=== PATIENT | female | born 1975 | race African-American/Black ===

== ENCOUNTER 2022-07-20 17:49 | Emergency (ER) | payer SELFPAY ==
--- OUTSIDE RECORDS SUMMARY | 2022-07-20 17:52 | XMS REPORT | Continuity of Care Document ---
:[address] [facility] t Address [address] [place] [address] Care Team Providers Name Role Phone PCP, PATIENT DOES NOT HAVE A Primary Care Physician Unavailvlad Dailey MD, Snow Vargas Attending Clinician SRIKANTH GASPAR Attending Clinician Unavailable Afshin Lora MD Attending Clinician Srikanth Gaspar DO Attending Clinician CE DOVER Attending Clinician Unavailable FLORIDA JACINTO Attending Clinician Unavailable LATANYA ESPINO Attending Clinician Unavailable Grace Cook Attending Clinician Unavailable NA THAPA Attending Clinician Unavailable REGINA YADAV Attending Clinician Unavailable CE ELIZABETH Attending Clinician Unavailable UNDEFINED Attending Clinician Unavailable SRIKANTH GASPAR Admitting Clinician Unavailable Srikanth Gaspar DO Admitting Clinician CE DOVER Admitting Clinician Unavailable FLORIDA JACINTO Admitting Clinician Unavailable UNDEFINED Admitting Clinician Unavailable Payers Payer Name Policy Type Policy Number Effective Date Expiration Date S ource Problems Condition Condition Condition Status Onset Resolution Last Treating Co mments Source Name Details Category Date Date Treatment Clinician Date Vomiting, Vomiting, Disease Active 2021-05 Uni vers unspecifie unspecifie 06-11 [place] of d [place] d [place] type, type, 00 Medical unspecifie unspecifie Br anch d whether d whether nausea nausea present present Personal Personal Problem Active Centr al history of history of Ca re other other [facility] complicati complicati ty ons of ons of Health , , Ce nter childbirth childbirth and the and the puerperium puerperium Fibroids Fibroids Problem Active Centr al [facility] Severe Severe Problem Active Central depression depression Ca re [facility] Infertilit Infertilit Problem Active C entral y y Care counseling counseling Co [facility] BMI BMI Problem Active Central 37.0-37.9, 37.0-37.9, Ca re adult adult [facility] Urinary Urinary Problem Active Central frequency frequency [facility] Menorrhagi Menorrhagi Problem Active C entral a a [facility] Urinary Urinary Problem Active Central problem problem [facility] Unprotecte Unprotecte Problem Active C entral d sexual d sexual Care intercours intercours [facility] e e [facility] Nausea Nausea Problem Active Central [facility] BMI BMI Problem Active Central 39.0-39.9, 39.0-39.9, Ca re adult adult [facility] Sinusitis Sinusitis Problem Active Roberto tral [facility] Headache Headache Problem Active Centr al [facility] HTN HTN Problem Active Central (hypertens (hypertens Ca re ion) ion) [facility] Diabetes Diabetes Problem Active Centr al [facility] Well adult Well adult Problem Active C entral exam exam [facility] Hyperlipem Hyperlipem Problem Active C entral ia ia [facility] Allergies, Adverse Reactions, Alerts Allergy Allergy Status Severity Reaction(s) Onset Inactive Treating Comm ents Source Name Type Date Date Clinician Metformi Propensi Active Nausea 2021-05 Univer s n ty to and/or 06-10 ity of adverse Vomiting 00:00: [place] reaction 00 Medical s Branch METFORMI DRUG Active N/V 2021-05 Univers N INGREDI 06-10 ity of 00:00: [place] 00 Medical Branch metformi DA Active SV [facility] [place] 00:[facility]: d 00 [facility] metformi DA Active SV [facility] n 7-06 [place] 00:00: d 00 [facility] Metformi Adverse Active Info Not Centr al n HCl Reaction Available Care [facility] Metformi Adverse Active Info Not Centr al n & Diet Reaction Available Car e Manage [facility] NO KNOWN Drug Active Univers ALLERGIE Class ity of S [facility] Social History Social Habit Start Date Stop Date Quantity Comments Source Exposure to 2022-03-31 2022-04-10 Not sure [facility] SARS-CoV-2 00:00:00 06:34:00 [facility] (event) [place] Tobacco use and 2022-04-10 2022-04-10 Smokeless tobacco Un iversity of exposure 00:00:00 00:00:00 non-user [facility] Sex [birth year] Universit y of 00:00:00 00:00:00 [facility] Smoking Status Start Date Stop Date Source Never smoked tobacco [facility] Medications Ordered Filled Start Stop Current Ordering Indication Dosage Frequency Signature Comments Components Source Medication Medication Date Date Medication? Clinician (SIG) Name Name amoxicillin 2021-05- No [id number] 875mg Take 1 Univers 875 mg 06-15 tablet by ity of tablet 00:00: 05:59 mouth in [place] 00 :00 the Medical morning Branch and 1 tablet in the evening. Do all this for 3 days. metoclopram 2021-05 Yes 10mg 10 mg, Univ ers cristobal HCl 2-04 Slow IV ity of (REGLAN) 22:30: Push, [place] injection 00 TIDAC, Medical 10 mg First dose Branch (after last modificati on) on 04/11/22 at 1630, Until Discontinu ed, Routine metoclopram 2021-05- No 5mg 5 mg, Slow Univers cristobal HCl 2-04 12-04 IV Push, ity of (REGLAN) 20:10: 20:32 ONCE, 1 [place] injection 5 00 :00 dose, On Medi ford mg Sun Branch 04/11/22 at 1415, Routine metoclopram 2021-05 Yes 25mg Take 25 mg Univers cristobal HCl 2-04 by mouth ity of (REGLAN) 10 19:42: [place] mg tablet 42 morning. Medica l Branch insulin NPH 2021-05 Yes 20U inject 20 U nivers hum/reg 2-04 Units ity of insulin hm 19:42: [place] the [place] (HUMULIN 42 skin 2 Medical 70/30 PEN (two) Branch SC) times daily. GLIMEPIRIDE 2021-05 Yes 7.5mg Take 7.5 U nivers ORAL 2-04 mg by ity of 19:42: mouth [place] 42 daily. Medical Branch losartan 25 2021-05 Yes 25mg Take 25 mg Univers mg tablet 2-04 by mouth ity of 19:42: in the [place] 42 morning. Medical Branch metoclopram 2021-05 Yes 25mg Take 25 mg Univers cristobal HCl 2-04 by mouth ity of (REGLAN) 10 19:42: [place] mg tablet 42 morning. Medica l Branch insulin NPH 2021-05 Yes 20U inject 20 U nivers hum/reg 2-04 Units ity of insulin hm 19:42: under the [place] (HUMULIN 42 skin 2 Medical 70/30 PEN (two) Branch SC) times daily. GLIMEPIRIDE 2021-05 Yes 7.5mg Take 7.5 U nivers ORAL 2-04 mg by ity of 19:42: mouth [place] 42 daily. Medical Branch losartan 25 2021-05 Yes 25mg Take 25 mg Univers mg tablet 2-04 by mouth ity of 19:42: in the [place] 42 morning. Medical Branch maalox:diph 2021-05- No 15mL 15 mL, Uni vers enhydrAMINE 2- 12-04 Oral, ity of :lidocaine 16:30: 16:06 ONCE, 1 [place] as 2 % viscous 00 :00 dose, On Medi ford 1:1:1 Sun Branch (FIRST-MOUT 04/11/22 at [facility]) 1030, oral Routine suspension 15 mL proMETHazin 2021-05 Yes 25mg 25 mg, Univ ers e 2-04 Intramuscu ity of (PHENERGAN) 15:08: lar, [place] injection 35 Q4HPRN, Medical 25 mg Starting Branch on 04/11/22 at 0908, Until Discontinu ed, Routine, Nausea and Vomiting (N/V) pantoprazol 2021-05 Yes 40mg 40 mg, Univ ers e 2-04 Oral, ity of (PROTONIX) 15:00: DAILY, [place] EC tablet 00 First dose Medi ford 40 mg on Sun Branch 04/11/22 at 0900, Until Discontinu ed, Routine KCL 2021-05- No 40meq 40 mEq, Univers (KLOR-CON 06-12 Oral, ity of M20) tablet 15:00: 14:21 DAILY, 1 [place] 40 mEq 00 :00 dose, Medical First dose Branch on 04/11/22 at 0900, Routine HYDROcodone 2021-05- No 1{tbl} 1 tablet, Univers -acetaminop 06-12 Oral, ity of hen (NORCO 14:30: 14:22 ONCE, 1 Juan as 5) 5-325 mg 00 :00 dose, On Medi ford tablet 1 Sun Branch tablet 04/11/22 at 0830, Routine magnesium 2021-05 No 4g 4 g, IV Univ ers sulfate in 06-12 Piggyback, it y of water 4 14:00: 16:34 at 25 [place] gram/50 mL 00 :00 mL/hr Medical (8 %) IV Administer Branc h Piggyback 4 over 120 g Minutes, ONCE, 1 dose, On 04/11/22 at 0800, Routine lidocaine 2021-05- No 1{patch 1 Patch, Univers (LIDODERM) 06-12 } Topical, ity of 5 % (700 00:15: 11:51 Administer [place] mg/patch) 00 :00 over 12 Medical patch 1 Hours, Branch Patch ONCE, 1 dose, On 04/10/22 at 1815, Routine pantoprazol 2021-05 Yes [id number] 40mg Take 1 Univers e 40 mg EC 2-04 tablet by ity of tablet 00:00: mouth in [place] 00 the Medical morning. Branch ondansetron 2021-05 Yes [id number] 4mg Take 1 Univers 4 mg tablet 2-04 tablet by ity of 00:00: mouth [place] 00 every 8 Medical (eight) Branch hours as needed for Nausea and Vomiting (N/V). pantoprazol 2021-05 Yes [id number] 40mg Take 1 Univers e 40 mg EC 2-04 tablet by ity of tablet 00:00: mouth in [place] 00 the Medical morning. Branch ondansetron 2021-05 Yes [id number] 4mg Take 1 Univers 4 mg tablet 2-04 tablet by ity of 00:00: mouth [place] 00 every 8 Medical (eight) Branch hours as needed for Nausea and Vomiting (N/V). ketorolac 2021-05- No 15mg 15 mg, Unive rs (TORADOL) 06-12 Slow IV ity of injection 00:00: 23:10 Push, [place] 15 mg 00 :00 ONCE, 1 Medical dose, On Branch 04/10/22 at 1800, Routine losartan 2021-05 Yes 25mg 25 mg, Univers (COZAAR) 06-11 Oral, ity of tablet 25 23:30: DAILY, [place] mg 00 First dose Medical on Sat Branch 04/10/22 at 1730, Until Discontinu ed, Routine enoxaparin 2021-05 Yes 40mg 40 mg, Unive rs (LOVENOX) 06-11 Subcutaneo ity of injection 23:00: us, DAILY, [place] 40 mg 00 First dose Medical on Sat Branch 04/10/22 at 1700, Until Discontinu ed, Routine metoclopram 2021-05- No 5mg 5 mg, Slow Univers cristobal HCl 06-11 IV Push, ity of (REGLAN) 17:30: 19:48 TIDAC, [place] injection 5 00 :12 First dose Me dical mg on Sat Branch 04/10/22 at 1130, Until Discontinu ed, Routine pantoprazol 2021-05- No 40mg 40 mg, Uni vers e 06-11 Slow IV ity of (PROTONIX) 15:30: 23:22 Push, [place] injection 00 :04 Q24H, Medical 40 mg First dose Branch on 04/10/22 at 0930, Until Discontinu ed Sliding 2021-05 Yes Subcutaneo Univ ers Scale 2 us, TID ity of Insulin - 14:00: MEALS+HS, Juan as Lispro 00 First dose Medical (HumaLOG) + on Sat Branch Fsbg 04/10/22 at Testing 0800, Until Discontinu ed, Routine glucagon 2021-05 Yes 1mg 1 mg, Univers (GLUCAGEN 2-03 Intramuscu ity of DIAGNOSTIC 12:22: lar, PRN, [place] KIT) 57 Starting Medical injection 1 on Sat Branch mg 04/10/22 at 0622, Until Discontinu ed, LILY, Blood Glucose < or = 70 mg/dL and patient is unable to swallow or has mental changes. dextrose 50 2021-05 Yes 25mL 25 mL, Univ ers % in water 2-03 Slow IV ity of (D50W) 12:22: Push, PRN, [place] injection 57 Starting Medica l 25 mL on Sat Branch 04/10/22 at 0622, Until Discontinu ed, LILY, Blood Glucose < or = 70 mg/dL and patient is unable to swallow or has mental status changes. lactated 2021-05 Yes 1000mL at 125 Unive rs ringers IV 2-03 mL/hr, ity of infusion 12:15: 1,000 mL, [place] 1,000 mL 00 IV Medical Infusion, Branch CONTINUOUS , Starting on 04/10/22 at 0615, Until Discontinu ed, Routine FENTanyl PF 2021-05- No 25ug 25 mcg, Un elliot (SUBLIMAZE 06-11 Slow IV ity o f (PF)) 12:08: 15:55 Push, [place] injection 57 :13 Q6HPRN, Medical 25 mcg Starting Branch on 04/10/22 at 0608, Until 04/10/22 at 0955, Routine, Pain (scale 7-10) ondansetron 2021-05 Yes 4mg 4 mg, Slow Univers (ZOFRAN 2-03 IV Push, ity of (PF)) 12:04: Q6HPRN, [place] injection 4 12 Starting Medi ford mg on Sat Branch 04/10/22 at 0604, Until Discontinu ed, Routine, Nausea and Vomiting (N/V) acetaminoph 2021-05 Yes 650mg 650 mg, Un elliot en 203 Oral, ity of (TYLENOL) 12:03: Q6HPRN, [place] tablet 650 57 Starting Medic al mg on Sat Branch 04/10/22 at 0603, Until Discontinu ed, Routine, Pain (scale 1-3) iopamidol 2021-05- No [id number] 100mL 100 mL, Univers (ISOVUE 2-03 04-10 Intravenou ity o f 370-500 mL) 08:15: 07:25 s, ONCE, 1 [place] injection 00 :00 dose, On Medica l 100 mL Sat Branch 04/10/22 at 0215, Routine diphenhydrA 2021-05 No 25mg 25 mg, Uni vers MINE 06-11 Slow IV ity of (BENADRYL) 07:15: 07:02 Push, [place] injection 00 :00 ONCE, 1 Medical 25 mg dose, On Branch 04/10/22 at 0115, STAT proMETHazin 2021-05 No 12.5mg 12.5 mg, Univers e 06-11 IV ity of (PHENERGAN) 07:15: 07:02 Piggyback, [place] 12.5 mg in 00 :00 ONCE, 1 Medica l NaCl 0.9% dose, On Branch (NS) 50 mL Sat IV 04/10/22 at piggyback 0115, LILY morpHINE (4 2021-05 No 4mg 4 mg, Slow Univers mg/mL) 06-11 IV Push, ity of injection 4 07:00: 07:01 ONCE, 1 [place] mg 00 :00 dose, On Medical Sat Branch 04/10/22 at 0100, STAT NaCl 0.9% 2021-05 No 1000mL at 999 Uni vers (NS) bolus 06-11 mL/hr, ity of infusion 07:00: 09:36 1,000 mL, Juan as 1,000 mL 00 :00 IV Medical Infusion, Branch ONCE, 1 dose, On 04/10/22 at 0100, STAT metoclopram 2021-05 No 10mg 10 mg, Uni vers cristobal HCl 06-11 Slow IV ity of (REGLAN) 06:00: 06:06 Push, [place] injection 00 :00 ONCE, 1 Medical 10 mg dose, On Branch 04/10/22 at 0000, LILY Augmentin Augmentin 2017- Yes Patricia 1 tablet Central 0-29 [facility] 00:00: Communi 00 [facility] Neurontin Neurontin 2017- Yes Patricia 1 capsule Central 0-26 [facility] 00:00: Communi 00 [facility] Nitrofurant Nitrofurant Yes Patricia 1 capsule Central oin oin 9-17 [facility] with food Care Macrocrysta Macrocrysta 00:00: or milk Communi l l 00 [facility] Paxil CR Paxil CR Yes Patricia 1 tablet Central 8-15 [facility] 00:00: morning Communi [facility] Lantus Lantus Yes Patricia 45 unit Roberto tral SoloStar SoloStar 7-23 [facility] Car e 00:00: Communi [facility] BD Insulin BD Insulin Yes Patricia as Central Syringe Syringe 11-28 [facility] directed C are 00:00: Communi [facility] Simvastatin Simvastatin Yes Patricia 1 tablet Central 723 [facility] 00:00: evening Communi [facility] Pioglitazon Pioglitazon Yes Patricia 1 tablet Central e HCl e HCl 717 [facility] 00:00: Communi [facility] Glimepiride Glimepiride Yes Patricia 1 tablet Central 7-17 [facility] with Care 00:00: breakfast Communi or the first main Health meal of [place] the day Amlodipine Amlodipine Yes Patricia 1 tablet Central Besylate Besylate [place] Car e [facility] Nitrofurant Nitrofurant Yes Patricia 1 capsule Central oin Monohyd oin Monohyd [facility] with food Care Macro Macro [facility] Vitafol Vitafol Yes Patricia 1 capsule C entral Ultra Ultra [facility] Vital Signs Vital Name Observation Time Observation Value Comments Source Systolic blood 2022-04-11 20:57:00 155 mm[Hg] Univer sity of pressure [facility] Diastolic blood 2022-04-11 20:57:00 101 mm[Hg] Unive [facility] Heart rate 2022-04-11 20:57:00 111 /min [facility] Body temperature 2022-04-11 20:57:00 36.89 Gabrielle [facility] Respiratory rate 2022-04-11 20:57:00 18 /min [facility] acute hospital Oxygen saturation in 2022-04-11 20:57:00 97 /min University Arterial blood by [facility] Pulse oximetry [place] Body height 2022-04-10 12:36:00 160 cm [facility] Body weight 2022-04-10 12:36:00 68.04 kg [facility] BMI 2022-04-10 12:36:00 26.57 kg/m2 [facility] Procedures Procedure Date / Time Performing Clinician Source Performed POCT GLUCOSE (AUTOMATED) 2022-04-11 22:54:00 Srikanth Gaspar [facility] URINE DRUG (IMMUNOASSAY) 2022-04-11 22:05:00 Srikanth Gaspar [facility] DRUG Medical Bra nch SCREEN W/O REFLEX BASIC METABOLIC PANEL 2022-04-11 18:23:00 Paulino Diallo [facility] (NA, K, CL, CO2, Medical [place] GLUCOSE, BUN, CREATININE, CA) POCT GLUCOSE (AUTOMATED) 2022-04-11 18:04:00 [facility] 2022-04-11 13:36[facility]00 [facility]UM 2022-04-11 09:59:00 Toma [facility] BASIC METABOLIC PANEL 2022-04-11 09:59:00 Toma [facility] (NA, K, CL, CO2, [facility] GLUCOSE, BUN, CREATININE, CA) CBC WITH DIFF 2022-04-11 09:59:00 Toma [facility] POCT GLUCOSE (AUTOMATED) 2022-04-11 02:38:00 [facility] PO[facility]SE (AUTOMATED) 2022-04-10 22:31:00 [facility] POCT [facility]SE (AUTOMATED) 2022-04-10 18:32:00 [facility] PO[facility]SE (AUTOMATED) 2022-04-10 14:49:00 [facility] PHOSPHORUS 2022-04-10 12:26:00 Toma [facility] TROPONIN I 2022-04-10 12:26:00 Ameri, [facility] BASIC METABOLIC PANEL 2022-04-10 12:26:00 Toma [facility] (NA, K, CL, CO2, Medical Branch GLUCOSE, BUN, CREATININE, CA) CBC WITH DIFF 2022-04-10 12:26:00 Toma [facility] POCT TEST 2022-04-10 09:41:00 Afshin Lora [facility] URINALYSIS 2022-04-10 09:35:00 Afshin Lora [facility] CT ABDOMEN PELVIS W 2022-04-10 07:24:29 Afshin Lora [facility] CONTRAST [facility] AC PANEL 21 + LACTIC 2022-04-10 06:15:00 Afshin Lora [facility] ACID [facility] Branch PHOSPHORUS 2022-04-10 06:05:00 Toma [facility] LIPASE 2022-04-10 06:05:00 Afshin Lora [facility] MAGNESIUM 2022-04-10 06:05:00 Toma [facility] TEST, SERUM 2022-04-10 06:05:00 Afshin Lora [facility] COMP. METABOLIC PANEL 2022-04-10 06:05:00 Afshin Lora [facility] ([id number]) [facility] CBC WITH DIFF 2022-04-10 06:05:00 Afshin Lora [facility] GLYCOSYLATED HEMOGLOBIN 2022-04-10 06:05:00 Toma [facility] (A1C) [facility] PROTHROMBIN TIME / INR 2022-04-10 06:05:00 Afshin Lora [facility] ACTIVATED PARTIAL 2022-04-10 06:05:00 Afshin Lora [facility] THRMPLAS ESTHER [facility] NOTICE OF PRIVACY 2022-04-10 05:16:59 Doctor Unassigned, No Univ [facility] PRACTICES Name Medical Branch CONSENT/REFUSAL FOR 2022-04-10 05:16:25 Doctor Unassigned, No [facility] Name Medical [place] Encounters Start End Encounter Admission Attending Care Care Encounter Source Date/Time Date/Time Type Type Clinicians Facility Department ID 2021-02-19 Outpatient [facility] [id number] [place] 19:48:57 [id number] [facility] 2021-02-19 Outpatient [facility] [id number] [facility] 19:44:25 [id number] [facility] 2022-04-14 2022-04-14 Telephone Snow Dailey [id number] Univers 00:00:00 00:00:00 Alicia LUCIAY [id number] it [facility] [id number] Juan as [id number] [facility] 009 Branch 2022-04-09 2022-04-11 Outpatient X JAY [facility] [id number] Univers 23:45:00 19:00:00 SRIKANTH greer [facility] 2022-04-09 2022-04-11 Emergency Guido Afshin LESLEY [id number] [facility] 23:45:00 19:00:00 Srikanth Gaspar PARDEEP [id number] [facility] [id number] Juan as [id number] [facility] 093 Branch 2022-03-13 2022-03-12 [facility] [id number] 10:49:00 12:17:00 CE 2022-01-29 2022-02-02 Inpatient E [place] JACINTO [facility] MED [id number] MHSW 08:50:00 13:07:00 2021-04-30 2021-05-01 Emergency E SRINIVAS, MHBL MHBL [id number] MHBL 22:44:00 07:37:00 LATANYA 2020-11-11 2020-11-11 Emergency EM Joey, HCAPM KANDACE [id number] [facility] 10:32:00 11:12:[address] [facility] 2020-11-03 2020-11-03 Emergency E SIMONA THAPA MHBL [id number] MHBL 08:41:00 09:02:00 NA 2020-02-26 2020-02-27 Emergency E SIMONA YADAV MHBL [id number] MHBL 22:21:00 03:43:00 REGINA 2020-01-16 2020-01-16 Emergency E GLENN, MHBL MHBL [id number] MHBL 17:04:00 20:51:00 CE 2019-12-25 2019-12-25 Outpatient UNDEFINED HCACL LABO [id number] [facility] 00:00:00 00:00:00 30 Keyla Jacob [facility] 2019-12-24 2019-12-24 Outpatient KATHRYN, HCAPM LABO [id number] [facility] 16:45:00 16:45:00 [facility] 2018-03-13 2018-03-13 Outpatient [facility] [id number] [place] 08:40:00 08:40:00 Care Care Care Integrate Integrated Com niki d Health Health ty Services Services [facility] 2018-03-06 2018-03-06 Outpatient [facility] [id number] [place] 12:40:00 12:40:00 Care Care Care Integrate Integrated Com niki d Health Health ty Services Services [facility] 2018-03-01 2018-03-01 Outpatient [facility] [id number] [place] 08:40:00 08:40:00 Care Care Care Integrate Integrated Com niki d Health Health ty Services Services [facility] 2018-02-22 2018-02-22 Outpatient [facility] [id number] [place] 08:20:00 08:20:00 Care Care Care Integrate Integrated Com niki d Health Health ty Services Services [facility] 2018-01-23 2018-01-23 Outpatient [facility] [id number] [place] 10:20:00 10:20:00 Care Care Care Integrate Integrated Com niki d Health Health ty Services Services [facility] 2017-12-21 2017-12-21 Outpatient [facility] [id number] [place] 16:20:00 16:20:00 Care Care Care Integrate Integrated Com niki d Health Health ty Services Services [facility] 2017-11-28 2017-11-28 Outpatient [facility] [id number] [place] 09:40:00 09:40:00 Care Care Care Integrate Integrated Com niki d Health Health ty Services Services [facility] 2017-11-21 2017-11-21 Outpatient [place] Central [id number] [place] 15:40:00 15:40:00 Care Care Care Integrate Integrated Com niki d Health Health ty Services Services [facility] Results Test Description Test Time Test Comments Results Result Comments Source POCT GLUCOSE (AUTOMATED) 2022-04-11 22:55:20 Test Item Value Reference Range Interpretation Comme [facility] POCT GLU (test code = 7195968906) 168 mg/dL 70-110 H Lab Interpretation (test code = 39904-1) [facility] (NA, K, CL, CO2, GLUCOSE, BUN, CREATININE, CA)2022-04-11 18:59:30 Test Item Value Reference Range Interpretation Comments NA (test code = 134 mmol/L 135-145 L [id number]) K (test code = 3.7 mmol/L 3.5-5.0 9329778849) CL (test code = 95 mmol/L 98-108 L 9114802573) CO2 TOTAL (test code = 30 mmol/L 23-31 8733972340) AGAP (test code = 2-16 6183487438) BUN (test code = 10 mg/dL 7-23 2713352807) GLUCOSE (test code = 220 mg/dL 70-110 H [id number]) CREATININE (test code = 0.56 mg/dL 0.50-1.04 3301030261) CALCIUM (test code = 8.0 mg/dL 8.6-10.6 L 8713595319) eGFR (test code = mL/min/1.73m2 8734768689) GILLIAN (test code = GILLIAN) Association of Glomerular Filtration Rate (GFR) and Staging of Kidney Disease* + --+ --+ ------+| GFR (mL/min/1.73 m2) ?| With Kidney Damage ?| ?Without Kidney Damage+ --------+ --------+ +| ?>90 ?| ?Stage one ?| ? Normal ?+ ---+ ---+ -------+| ?60-89 ?| ?Stage two ?| ? Decreased GFR ? + --+ --+ ------+| ?30-59 ?| ?Stage three ?| ? Stage three ? + --+ --+ ------+| ?15-29 ?| ?Stage four ? | ? Stage four ?+ ---+ ---+ -------+| ?<15 (or dialysis) ? ?| ?Stage five ? | ? Stage five ?+ ---+ ---+ -------+ *Each stage assumes the associated GFR level has been in effect for at least three months. ?Stages 1 to 5, with or without kidney disease, indicate chronic kidney disease. Notes: Determination of stages one and two (with eGFR >59mL/min/1.73 m2) requires estimation of kidney damage for at least three months as defined by structural or functional abnormalities of the kidney, manifested by either:Pathological abnormalities or Markers of kidney damage (including abnormalities in the composition of the blood or urine or abnormalities in imaging tests). Lab Interpretation Abnormal (test code = 35272-4) [facility] GLUCOSE (AUTOMATED)2022-04-11 18:05:18 Test Item Value Reference Range Interpretation Comments POCT GLU (test code = 0521630924) 212 mg/dL 70-110 H Lab Interpretation (test code = Abnormal 16251-0) [facility] GLUCOSE (AUTOMATED)2022-04-11 13:37:30 Test Item Value Reference Range Interpretation Comments POCT GLU (test code = 8985985123) 119 mg/dL 70-110 H Lab Interpretation (test code = Abnormal 09668-2) [facility] GLUCOSE (AUTOMATED)2022-04-11 03:00:33 Test Item Value Reference Range Interpretation Comments POCT GLU (test code = 9108241186) 182 mg/dL 70-110 H Lab Interpretation (test code = Abnormal 61101-3) [facility] GLUCOSE (AUTOMATED)2022-04-10 22:32:12 Test Item Value Reference Range Interpretation Comments POCT GLU (test code = 5558328415) 157 mg/dL 70-110 H Lab Interpretation (test code = Abnormal 30598-1) [facility]27:51 Test Item Value Reference Range Interpretation Comments MAGNESIUM (test code = 8267754508) 1.9 mg/dL 1.7-2.4 Lab Interpretation (test code = Normal 11143-4) [facility] 19:27:36 Test Item Value Reference Range Interpretation Comments PHOSPHORUS (test code = 4524737817) 3.7 mg/dL 2.5-5.0 Lab Interpretation (test code = Normal 79132-4) [facility] GLUCOSE (AUTOMATED)2022-04-10 18:33:30 Test Item Value Reference Range Interpretation Comments POCT GLU (test code = 7929120626) 166 mg/dL 70-110 H Lab Interpretation (test code = Abnormal 24700-2) [facility] (A1C)2022-04-10 16:16:52 Test Item Value Reference Range Interpretation Comments HGB A1C (test code = 6.6 % 4.0-5.7 H 4548-4) GILLIAN (test code = GILLIAN) Reference RangesNormal: <5.7%Prediabetes: 5.7 - 6.4%Diabetes: > 6.5% Lab Interpretation (test Abnormal code = 68524-5) [facility] GLUCOSE (AUTOMATED)2022-04-10 14:50:22 Test Item Value Reference Range Interpretation Comments POCT GLU (test code = 3060344040) 239 mg/dL 70-110 H Lab Interpretation (test code = Abnormal 67017-3) [facility] [id number] 09:41:00 Test Item Value Reference Range Interpretation Comments POCT PREG (test code = 1605) negative Lab Interpretation (test code = Normal 31236-4) [facility], [id number] 06:52:14 Test Item Value Reference Range Interpretation Comments PREG SERUM (test code Negative = 7596958481) GILLIAN (test code = GILLIAN) Less than 10 IU/L. ?If low titer or ectopic is suspected, resubmit specimen in 48-72 hours. [facility]OLIC PAN[facility] (32099)2022-04-10 06:35:08 Test Item Value Reference Range Interpretation Comments NA (test code = 135 mmol/L 135-145 7229723089) K (test code = 4.3 mmol/L 3.5-5.0 6791014896) CL (test code = 95 mmol/L 98-108 L 5687610949) CO2 TOTAL (test code = 30 mmol/L 23-31 7412630411) AGAP (test code = 2-16 1135563458) BUN (test code = 14 mg/dL 7-23 0079783313) GLUCOSE (test code = 286 mg/dL 70-110 H 2130266025) CREATININE (test code = 0.72 mg/dL 0.50-1.04 9257384032) TOTAL BILI (test code = 2.2 mg/dL 0.1-1.1 H 9991923091) CALCIUM (test code = 9.7 mg/dL 8.6-10.6 3247365731) T PROTEIN (test code = 7.6 g/dL 6.3-8.2 0712230933) ALBUMIN (test code = 4.5 g/dL 3.5-5.0 5677956942) ALK PHOS (test code = 81 U/L 34-122 1630417770) ALTv (test code = 15 U/L 5-35 1742-6) AST(SGOT) (test code = 18 U/L 13-40 8131782276) eGFR (test code = mL/min/1.73m2 0012640776) GILLIAN (test code = GILLIAN) Association of Glomerular Filtration Rate (GFR) and Staging of Kidney Disease* + --+ --+ ------+| GFR (mL/min/1.73 m2) ?| With Kidney Damage ?| ?Without Kidney Damage+ --------+ --------+ +| ?>90 ?| ?Stage one ?| ? Normal ?+ ---+ ---+ -------+| ?60-89 ?| ?Stage two ?| ? Decreased GFR ? + --+ --+ ------+| ?30-59 ?| ?Stage three ?| ? Stage three ? + --+ --+ ------+| ?15-29 ?| ?Stage four ? | ? Stage four ?+ ---+ ---+ -------+| ?<15 (or dialysis) ? ?| ?Stage five ? | ? Stage five ?+ ---+ ---+ -------+ *Each stage assumes the associated GFR level has been in effect for at least three months. ?Stages 1 to 5, with or without kidney disease, indicate chronic kidney disease. Notes: Determination of stages one and two (with eGFR >59mL/min/1.73 m2) requires estimation of kidney damage for at least three months as defined by structural or functional abnormalities of the kidney, manifested by either:Pathological abnormalities or Markers of kidney damage (including abnormalities in the composition of the blood or urine or abnormalities in imaging tests). Lab Interpretation Abnormal (test code = 27767-6) [facility] 06:34:27 Test Item Value Reference Range Interpretation Comments LIPASE (test code = 8415775588) 157 U/L 0-220 Lab Interpretation (test code = Normal 47810-1) [facility] THRM[facility] [id number] 06:31:26 Test Item Value Reference Range Interpretation Comments APTT Patient (test See_Comment [Automat ed code = 3173-2) message] The system which generated this result transmitted reference range : 23 - 38 Seconds . The reference range was not used to interpr et this result as normal/abnormal . GILLIAN (test code = GILLIAN) The [facility] [place] patient population mean normal value for aPTT is 30 seconds. Lab Interpretation Normal (test code = 72019-7) [facility] HospitalPROTHROMBIN [facility] / [id number] 06:29:24 Test Item Value Reference Range Interpretation Comments PROTIME PATIENT (test See_Comment [Auto mated message] code = 5964-2) The system wh ich generated this result transmitted ref erence range: 12.0 - 1 4.7 Seconds. The re ference range was not u sed to interpret this result as normal/abnor mal. INR (test code = 6301-6) Nor mal INR <1.1; Warfarin Therap eutic range 2.0 to 3. 0 or 2.5 to 3.5, dep ending upon the indica tions. Lab Interpretation (test Normal code = 82707-3) [facility] WITH [id number] 06:26:08 Test Item Value Reference Range Interpretation Comments WBC (test code = See_Comment [Automated 2990-2) message] The sy stem which generated this result transmitted reference range : 4.30 - 11.10 10*3/?L. The reference range was not used to interpret this result as normal/abnormal . RBC (test code = See_Comment [Automated 969-8) message] The sy stem which generated this result transmitted reference range : 3.93 - 5.25 10*6/?L. The reference range was not used to interpret this result as normal/abnormal . HGB (test code = 12.6 g/dL 11.6-15.0 718-7) HCT (test code = 37.3 % 35.7-45.2 4544-3) MCV (test code = 86.7 fL 80.6-95.5 787-2) MCH (test code = 29.3 pg 25.9-32.8 785-6) MCHC (test code = 33.8 g/dL 31.6-35.1 786-4) RDW-SD (test code = 37.9 fL 39.0-49.9 L 68707-9) RDW-CV (test code = 11.9 % 12.0-15.5 L 788-0) PLT (test code = See_Comment H [Automated 777-3) message] The sy stem which generated this result transmitted reference range : 166 - 358 10*3/ ?L. The reference r marco was not used to interpret this result as normal/abnormal . MPV (test code = 10.2 fL 9.5-12.9 87745-7) NRBC/100 WBC (test See_Comment [Automat ed code = 1783121851) message] The system which generated this result transmitted reference range : 0.0 - 10.0 /100 WBCs. The refer ence range was not u sed to interpret th is result as normal/abnormal . NRBC x10^3 (test code See_Comment [Auto mated = 5986755133) message] The s ystem which generated this result transmitted reference range : 10*3/?L. The reference range was not used to interpret this result as normal/abnormal . GRAN MAT (NEUT) % 60.4 % (test code = 770-8) IMM GRAN % (test code 0.30 % = 4658740189) LYMPH % (test code = 32.1 % 736-9) MONO % (test code = 5.8 % 5905-5) EOS % (test code = 0.5 % 713-8) BASO % (test code = 0.9 % 706-2) GRAN MAT x10^3(ANC) 5.30 10*3/uL 1.88-7.09 (test code = 4527556561) IMM GRAN x10^3 (test 0.03 10*3/uL 0.00-0.06 code = 4750376198) LYMPH x10^3 (test code 2.82 10*3/uL 1.32-3.29 = 731-0) MONO x10^3 (test code 0.51 10*3/uL 0.33-0.92 = 742-7) EOS x10^3 (test code = 0.04 10*3/uL 0.03-0.39 711-2) BASO x10^3 (test code 0.08 10*3/uL 0.01-0.07 H = 704-7) Lab Interpretation Abnormal (test code = 88597-1) [facility]"
[2022-07-20 18:26] LABS: Absolute Lymphocytes (CBC) 0.9 K/uL (0.7-4.9); Hematocrit 39.4 % (36.0-45.0); MCV 88.7 fL (80-100); RBC Red Blood Cell Count 4.44 M/uL (3.86-4.86)
[2022-07-20] MEDS ORDERED: NA CHLORIDE 0.9% 1,000 ML ONE ×2 (18:28→22:29)
[2022-07-20] MEDS ORDERED: DIPHENHYDRAMINE 50 MG/ML VIAL ONE (18:28)
[2022-07-20] MEDS ORDERED: KETOROLAC 30 MG/ML INJ ONE (18:28)
[2022-07-20] MEDS ORDERED: METOCLOPRAMIDE 10 MG/2mL INJ ONE (18:32)
[2022-07-20 18:50] LABS: Bilirubin Total 1.3 mg/dL (0.2-1.0); Potassium 3.9 mmol/L (3.5-5.1); Protein, Total 8.7 g/dL (6.4-8.2)
[2022-07-20] MEDS ORDERED: INSULIN -REGULAR HUMAN 50 UNIT/0.5 ML ML ONE ×2 (20:30→21:57)
--- NOTE | 2022-07-20 20:31 | RAD REPORT ---
EXAM DESCRIPTION: CT - Abdomen Pelvis W Contrast - 07/20/2022 8:09 pm CLINICAL HISTORY: Abdominal pain COMPARISON: none. TECHNIQUE: Computed axial tomography of the abdomen pelvis was obtained. 100 cc Isovue-300 was admin istered intravenously. Oral contrast was not requested which limits evaluation of bowel and appendix All CT scans are performed using dose optimization technique as appropriate and may include automated exposure control or mA/KV adjustment according to patient size. FINDINGS: The liver, spleen, pancreas, adrenal and kidneys appear unremarkable. Cholecystectomy Diverticula stem from the colon without evidence of diverticulitis. 2.4 centimeter left ovarian cyst without significant free fluid. Calcified uterine fibroid. IMPRESSION: 2.4 centimeter left ovarian cyst without significant free fluid
[2022-07-20 23:30] LABS: Urine Blood Negative (Negative); Urine Glucose 3+ (Negative); Urine Protein Trace (Negative); Urine Specific Gravity <=1.005 (1.005-1.030); Urine pH 5.5 (5.0-7.0)
--- NOTE | 2022-07-20 23:53 | ER ---
Nurse's Notes [facility] Name: aMy Gan Age: 47 yrs Sex: Female : 1975 Arrival Date: 07/20/2022 Time: 17:54 Bed 9 Private MD: Diagnosis: Nausea with vomiting, unspecified;Abdominal pain, unspecified Presentation: 07/20 17:59 Chief complaint: Diffuse abdominal pain and N/V/D since 0400 today. Hx of hb gastroparesis. Coronavirus screen:. Ebola Screen: No symptoms or risks identified at this time. Initial Sepsis Screen: Does the patient meet any 2 criteria? No. Patient's initial sepsis screen is negative. Does the patient have a suspected source of infection? No. Patient's initial sepsis screen is negative. Risk Assessment: Do you want to hurt yourself or someone else? Patient reports no desire to harm self or others. Onset of symptoms was July 20, 2022. 17:59 Method Of Arrival: Ambulatory hb 17:59 Acuity: KAVITA 3 hb Triage Assessment: 18:30 General: Appears in no apparent distress. uncomfortable, Behavior is calm, cooperative, nj1 appropriate for age. 18:30 GI: Pt is actively vomiting Bluish/greenish looking liquid. Pt states she drank a nj1 powerade earlier. 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 - Social history:: Smoking status: Patient denies any tobacco usage or history of. Screenin:45 [facility] ED Fall Risk Assessment (Adult) History of falling in the last 3 months, nj1 including since admission No falls in past 3 months (0 pts) Confusion or Disorientation No (0 pts) Intoxicated or Sedated No (0 pts) Impaired Gait No (0 pts) Mobility Assist Device Used No (0 pt) Altered Elimination No (0 pt) Score/Fall Risk Level 0 - 2 = Low Risk Oriented to surroundings, Maintained a safe environment, Assessed \\T\\ reinforced patient's understanding of fall precautions, Hourly rounding (assess needs \\T\\ fall precautionary measures) done. Abuse screen: Denies threats or abuse. Denies injuries from another. Nutritional screening: No deficits noted. Tuberculosis screening: No symptoms or risk factors identified. Assessment: 18:20 General: Appears in no apparent distress. uncomfortable. Pain: Complains of pain in nj1 abdomen Pain currently is 8 out of 10 on a pain scale. Also complains of nausea. Neuro: No deficits noted. Level of Consciousness is awake, alert, obeys commands, Oriented to person, place, time, situation. Cardiovascular: No deficits noted. Respiratory: No deficits noted. Airway is patent Respiratory effort is even, unlabored, Respiratory pattern is regular. GI: Reports nausea, vomiting. 19:05 Reassessment: Patient appears in no apparent distress at this time. Patient and/or co1 family updated on plan of care and expected duration. Pain level reassessed. Patient is alert, oriented x 3, equal unlabored respirations, skin warm/dry/pink. Denies nausea, when asked how is the pain, she states "better", this nurse asks patient to rate pain, patient does not reply. Patient states feeling better. 19:45 General: Appears in no apparent distress. uncomfortable, Behavior is calm, cooperative, eh3 appropriate for age. Pain: Complains of pain in abdomen Pain currently is 3 out of 10 on a pain scale. Neuro: Level of Consciousness is awake, alert, obeys commands, Oriented to person, place, time, situation. Cardiovascular: Capillary refill < 3 seconds Patient's skin is warm and dry. Respiratory: Airway is patent Respiratory effort is even, unlabored, Respiratory pattern is regular, symmetrical. GI: Abdomen is distended, non-distended, Bowel sounds present X 4 quads. Abd is soft and non tender X 4 quads. 20:45 Reassessment: Patient appears in no apparent distress at this time. Patient and/or 3 family updated on plan of care and expected duration. Pain level reassessed. Patient is alert, oriented x 3, equal unlabored respirations, skin warm/dry/pink. 21:45 Reassessment: Patient appears in no apparent distress at this time. Patient and/or 3 family updated on plan of care and expected duration. Pain level reassessed. Patient is alert, oriented x 3, equal unlabored respirations, skin warm/dry/pink. 22:45 Reassessment: Patient appears in no apparent distress at this time. Patient and/or 3 family updated on plan of care and expected duration. Pain level reassessed. Patient is alert, oriented x 3, equal unlabored respirations, skin warm/dry/pink. Vital Signs: 17:59 BP 171 / 105; Pulse 116; Resp 18; Temp 98.8(TE); Pulse Ox 100% on R/A; Weight 72.57 kg; hb Height 5 ft. 3 in. ; Pain 8/10; 19:00 BP 138 / 91; Pulse 106; Resp 16; Pulse Ox 98% on R/A; nj1 19:45 BP 167 / 95; Pulse 98; Resp 16; Pulse Ox 97% on R/A; eh3 20:45 BP 152 / 79; Pulse 92; Resp 16; Pulse Ox 98% on R/A; eh3 21:45 BP 152 / 82; Pulse 95; Resp 16; Pulse Ox 99% on R/A; eh3 22:45 BP 137 / 78; Pulse 94; Resp 16; Pulse Ox 99% on R/A; eh3 17:59 Body Mass Index 28.34 (72.57 kg, 160.02 cm) hb 17:59 Pain Scale: Adult hb ED Course: 17:54 Patient arrived in ED. mr 18:00 Triage completed. hb 18:00 Arm band placed on. hb 18:02 Devi Jauregui FNP-C is PHCP. kb 18:02 Tu Vora MD is Attending Physician. kb 18:04 Alicia Perez, FLOR is Primary Nurse. nj1 18:19 Inserted saline lock: 22 gauge in right antecubital area, using aseptic technique. nj1 Blood collected. 18:35 Bed in low position. Call light in reach. Side rails up X 1. nj1 19:45 IV is patent, with fluids infusing freely, with good blood return. eh3 19:57 PHCP role handed off by Devi Jauregui FNP-C cp 19:57 Mauricio Carreno PA is PHCP. cp 20:10 CT Abd/Pelvis - IV Contrast Only In Process Unspecified. EDMS 22:21 Diet: Patient given water. Tolerated well. eh3 23:50 IV discontinued, intact, bleeding controlled, No redness/swelling at site. Pressure bb dressing applied, IV to right AC infiltrated cool compress applied after discontinuation. Administered Medications: 18:34 Drug: NS 0.9% IV 1000 ml Route: IV; Rate: 1000 ml; Site: right antecubital; [facility] 18:34 Drug: metoCLOPramide IVP 10 mg Route: IVP; Infused Over: 2 mins; Site: right nj1 antecubital; 19:45 Follow up: Response: Marked relief of symptoms 3 18:34 Drug: diphenhydrAMINE IVP 12.5 mg Route: IVP; Site: right antecubital; co1 19:45 Follow up: Response: No adverse reaction eh3 18:34 Drug: Ketorolac IVP 15 mg Route: IVP; Site: right antecubital; co1 19:45 Follow up: Response: Pain is decreased eh3 20:30 Drug: Insulin Regular Human IVP 5 units {Co-Signature: as6 (Carlos Alberto Harkins RN).} Route: eh3 IVP; Site: Other; 21:05 Follow up: Response: Blood sugar is lowered 3 21:45 Drug: Insulin Regular Human IVP 10 units {Co-Signature: as6 (Carlos Alberto Harkins RN).} 3 Route: IVP; Site: Other; 22:30 Drug: NS 0.9% IV 1000 ml Route: IV; Rate: 1000 ml; Site: right forearm; 3 23:50 Follow up: IV Status: IV infiltrated; IV Intake: 500ml bb Intake: 23:50 IV: 500ml; Total: 500ml. bb Outcome: 23:53 Discharge ordered by . cp Signatures: Dispatcher [employer] Devi Heart, FRANCISCO-C EAP CLINICIAN-Breanna Pedro Francia mr Mckenna Moura RN FLOR bb Mauricio Carreno PA PA cp Saritha Lockhart, FLOR RAY Saray Rodney RN RN [facility] Alicia Perez RN RN nj1 Carlos Alberto Harkins RN as6
--- NOTE | 2022-07-20 23:54 | EDPHYS ---
Physician Documentation [facility] Name: May Gan Age: 47 yrs Sex: Female : 1975 Arrival Date: 07/20/2022 Time: 17:54 Bed 9 Private MD: ED Physician Tu Vora HPI: 07/20 19:47 This 47 yrs old Black Female presents to ER via Ambulatory with complaints of Abdominal kb Pain, Vomiting/Diarrhea. 19:47 The patient presents with abdominal pain in the upper abdomen. Onset: The kb symptoms/episode began/occurred this morning, at 04:00. The symptoms do not radiate. Associated signs and symptoms: Pertinent positives: nausea and vomiting, Pertinent negatives: diarrhea, fever. The symptoms are described as constant. Modifying factors: The symptoms are alleviated by nothing, the symptoms are aggravated by nothing. Severity of pain: At its worst the pain was moderate in the emergency department the pain is unchanged. The patient has not experienced similar symptoms in the past. The patient has not recently seen a physician. 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 - Social history:: Smoking status: Patient denies any tobacco usage or history of. ROS: 19:47 Constitutional: Negative for fever, chills, and weight loss. kb 19:47 Abdomen/GI: Positive for abdominal pain, nausea and vomiting. 19:47 All other systems are negative. Exam: 19:47 Constitutional: This is a well developed, well nourished patient who is awake, alert, kb and in no acute distress. Head/Face: Normocephalic, atraumatic. ENT: Moist Mucous membranes Cardiovascular: Regular rate and rhythm with a normal S1 and S2. No gallops, murmurs, or rubs. No pulse deficits. Respiratory: Respirations even and unlabored. No increased work of breathing. Talking in full sentences Skin: Warm, dry with normal turgor. Normal color. MS/ Extremity: Pulses equal, no cyanosis. Neurovascular intact. Full, normal range of motion. Neuro: Awake and alert, GCS 15, oriented to person, place, time, and situation. Moves all extremities. Normal gait. Psych: Awake, alert, with orientation to person, place and time. Behavior, mood, and affect are within normal limits. 19:47 Abdomen/GI: Inspection: abdomen appears normal, Bowel sounds: normal, Palpation: soft, in all quadrants, moderate abdominal tenderness, in the right upper quadrant and left upper quadrant. Vital Signs: 17:59 BP 171 / 105; Pulse 116; Resp 18; Temp 98.8(TE); Pulse Ox 100% on R/A; Weight 72.57 kg; hb Height 5 ft. 3 in. ; Pain 8/10; 19:00 BP 138 / 91; Pulse 106; Resp 16; Pulse Ox 98% on R/A; nj1 19:45 BP 167 / 95; Pulse 98; Resp 16; Pulse Ox 97% on R/A; eh3 20:45 BP 152 / 79; Pulse 92; Resp 16; Pulse Ox 98% on R/A; eh3 21:45 BP 152 / 82; Pulse 95; Resp 16; Pulse Ox 99% on R/A; eh3 22:45 BP 137 / 78; Pulse 94; Resp 16; Pulse Ox 99% on R/A; eh3 17:59 Body Mass Index 28.34 (72.57 kg, 160.02 cm) hb 17:59 Pain Scale: Adult hb MDM: 18:02 Patient medically screened. kb 19:48 Differential diagnosis: gastritis, non-specific abd pain, pancreatitis, Gastroparesis. kb Data reviewed: vital signs, nurses notes. ED course: Patient is a 47-year-old female with a history of gastroparesis who presents with upper abdominal pain, nausea and vomiting that started at 0 400 this morning. Reports it feels exactly the same as previous episodes of gastroparesis. On exam patient has tenderness to upper abdomen. Nontoxic in appearance. Lungs clear bilaterally, respirations even and unlabored. Serum labs ordered. WBC count elevated, CT ordered.. 20:09 Transition of care: After a detail discussion of the patient's case, care is kb transferred to Mauricio SALES. 07/20 18:02 Order name: CBC with Diff; Complete Time: 18:38 kb 07/20 20:51 Interpretation: Normal except: WBC 13.60; HIWOT% 91.1; LYM% 7.0; MN% 1.5; NEUT A 12.4. cp 07/20 18:02 Order name: CMP; Complete Time: 18:54 kb 07/20 20:51 Interpretation: Normal except: NA 134; ANION GAP 16.9; GLUC 417; CRE 1.05; GFR 66; AST cp 13; BILIT 1.3; TP 8.7; GLOB 4.7; A/G 0.9. 07/20 18:02 Order name: Lipase; Complete Time: 18:54 kb 07/20 18:02 Order name: IV Saline Lock; Complete Time: 18:19 kb 07/20 18:02 Order name: Labs collected and sent; Complete Time: 18:19 kb 07/20 18:54 Order name: CT Abd/Pelvis - IV Contrast Only; Complete Time: 20:48 kb 07/20 20:48 Interpretation: Report reviewed. 07/20 20:52 Order name: Accucheck Blood Glucose; Complete Time: 21:05 07/20 21:16 Order name: Glucose, Ancillary Testing; Complete Time: 21:18 EDMS 07/20 21:18 Interpretation: Abnormal: GLUC,ANCIL 320. 07/20 21:58 Order name: PO challenge; Complete Time: 22:21 07/20 23:29 Order name: Accucheck Blood Glucose 07/20 18:02 Order name: Urine Dipstick-Ancillary (obtain specimen); Complete Time: 23:32 kb 07/20 23:33 Order name: Urine --Ancillary (enter results) [facility] 07/20 23:30 Order name: Urine Dipstick-Ancillary; Complete Time: 23:49 EDMS Administered Medications: 18:34 Drug: NS 0.9% IV 1000 ml Route: IV; Rate: 1000 ml; Site: right antecubital; [facility] 18:34 Drug: metoCLOPramide IVP 10 mg Route: IVP; Infused Over: 2 mins; Site: right id1 antecubital; 19:45 Follow up: Response: Marked relief of symptoms 3 18:34 Drug: diphenhydrAMINE IVP 12.5 mg Route: IVP; Site: right antecubital; [facility] 19:45 Follow up: Response: No adverse reaction 3 18:34 Drug: Ketorolac IVP 15 mg Route: IVP; Site: right antecubital; [facility] 19:45 Follow up: Response: Pain is decreased 3 20:30 Drug: Insulin Regular Human IVP 5 units {Co-Signature: as6 (Carlos Alberto Harkins RN).} Route: 3 IVP; Site: Other; 21:05 Follow up: Response: Blood sugar is lowered [facility] 21:45 Drug: Insulin Regular Human IVP 10 units {Co-Signature: as6 (Carlos Alberto Harkins RN).} [facility] Route: IVP; Site: Other; 22:30 Drug: NS 0.9% IV 1000 ml Route: IV; Rate: 1000 ml; Site: right forearm; [facility] 23:50 Follow up: IV Status: IV infiltrated; IV Intake: 500ml bb Disposition Summary: 07/20/22 23:53 Discharge Ordered Location: Home cp Problem: new cp Symptoms: have improved cp Condition: Stable cp Diagnosis - Nausea with vomiting, unspecified cp - Abdominal pain, unspecified cp Followup: cp - With: Private Physician - When: 2 - 3 days - Reason: Recheck today's complaints Forms: - Medication Reconciliation Form cp - Thank You Letter cp - Antibiotic Education cp - Prescription Opioid Use cp Signatures: Dispatcher [employer] EDDevi Mantilla, DEVON MAGAÑAP-Mauricio Hathaway PA PA cp Sarihta Lockhart, RN RN Saray Rodney RN RN 3 Alicia Perez RN RN nj1 Mckenna Moura RN bb Carlos Alberto Harkins RN as6
[2022-07-21 08:45] VITALS: TEMP 98.8
[2022-07-21 09:16] VITALS: BP 137/78; O2SAT 99
== END 2022-07-21 00:10 | disposition home or self-care (01) ==
LOC: ER 17:49
DX: R11.2 Nausea with vomiting, unspecified (principal); R10.10 Upper abdominal pain, unspecified
CPT/HCPCS: 36415; 74177; 80053; 81003; 82947; 83690; 85025; 99284; J1200; J1815; J2765; J7030; Q9967